=== PATIENT | male | born 1990 | race Native Hawaiian/Other Pacific Islander ===

== ENCOUNTER 2022-01-27 07:32 | Emergency (ER) | payer BC ==
[~2022-01-27] VITALS: Ht 180.3 cm; Wt 127.0 kg
[2022-01-27 07:35] VITALS: TEMP 97.6
[2022-01-27 08:11] LABS: PLATELET COUNT 249 K/uL (142-355)
[2022-01-27 08:21] LABS: POTASSIUM 4.2 mmol/L (3.6-5.2)
[2022-01-27 08:40] VITALS: BP 146/88
== END 2022-01-27 08:45 | disposition home or self-care (01) ==
LOC: ED 07:32
PROVIDERS: Emergency Medicine
DX: M25.571 Pain in right ankle and joints of right foot (principal)
CPT/HCPCS: 80053; 84550; 85027; 96372; 99283; J1885

== ENCOUNTER 2022-03-29 09:48 | Emergency (ER) | payer OTHER ==
[~2022-03-29] VITALS: Ht 180.3 cm; Wt 131.5 kg
[2022-03-29 09:54] VITALS: BP 153/103; TEMP 97.8
[2022-03-29 10:36] LABS: PLATELET COUNT 274 K/uL (142-355)
[2022-03-29 10:47] LABS: POTASSIUM 3.6 mmol/L (3.6-5.2)
== END 2022-03-29 13:10 | disposition home or self-care (01) ==
LOC: ED 09:48
PROVIDERS: Emergency Medicine Emergency Medical Services
DX: G40.909 Epilepsy, unspecified, not intractable, without status epilepticus (principal)
CPT/HCPCS: 80053; 80164; 80307; 81002; 83735; 85027; 93005; 96360; 96361; 99284